=== PATIENT | male | born 1965 | race Caucasian/White ===

== ENCOUNTER 2016-11-22 12:33 | Inpatient (IN) | payer MEDICARE, OTHER ==
[2016-11-22] VITALS (9 sets, daily range): BP systolic 95–145; BP diastolic 39–76; BMI 27.9
[~2016-11-22] VITALS: Ht 180.3 cm; Wt 90.7 kg
--- NOTE | ~2016-11-22 | HEMODYNAMI ---
PATIENT:INDY MORGAN MEDICAL RECORD: [id number] : 67 [address] [id number] ADMISSION DATE: 11/22/16 Generatedon:11/25/201614:55 Patient name: INDY MORGAN Patient #: [id number] SSN: : 1965 Date of study: 11/25/2016 Page: Of Hemodynamic Procedure Report Patient Data Patient Demographics Procedure consent was obtained First Name: INDY Gender: Male Last Name: CATHY : 1965 Patient #: [id number] Age: 50 year(s) Race: Unknown Additional ID: [id number] Contact details Address: [address] [place] [address] [employer] State: [place] City: [place] Zip code: [address] Past Medical History Allergies Allergen Reaction Date Comments Reported Penicillins 11/23/2016 Pollen extracts 11/23/2016 Admission Admission Data Admission Date: 11/22/2016 Admission Time: 12:33 Room #: D.Formerly named [facility] Height (in.): 69 BSA: 2.06 (m2) Height (cm.): 175.26 BMI: 29.39 (kg/m2) Weight (lbs.): 199 Weight (kg.): 90.26 Procedure Procedure Types Cath Procedure Peripheral Cath Diagnostic Procedure Cath Peripheral Abd/Extremity Visceral/Mesenteric Mesenteric Arteriogram (Abd Artery) Procedure Description Procedure Date Procedure Date: 11/25/2016 Procedure Start Time: 14:38 Procedure Staff Name Function Shaheed Owusu MD Performing Physician Elias Payan RT Scrub Criselda Boswell RN Nurse Tawana Vega RT Pet Care Technician Tawana Vega RT Monitor Procedure Data Cath Procedure Fluoroscopy Diagnostic fluoroscopy Total fluoroscopy Time: 0.3 time: 0.3 min min Diagnostic fluoroscopy Total fluoroscopy dose: 10 dose: 10 mGy mGy Procedure Medications Medication Administration Route Dosage Fentanyl I.V. 50 mcg Fentanyl I.V. 50 mcg Fentanyl I.V. 50 mcg Fentanyl I.V. 50 mcg Fentanyl I.V. 50 mcg Hemodynamics Rest BSA: 2.06 (m2) O2 Consumption: Estimated: 274.92 (ml/min) O2 Consumption indexed : Estimated:133.46 (ml/min/m) Heart Rate: 107 (bpm) Snapshots Pre Cath Intra NCS Post Cath Vital Signs Time Heart Resp SPO2 NIBP (mmHg) Rhythm Pain Sedation Rate (ipm) (%) Status Level (bpm) 14:27:19 113 16 96 141/74(99) NSR 0 (11) 10(A) , No pain 14:31:41 115 15 94 138/78(93) NSR 0 (11) 10(A) , No pain 14:36:01 115 16 94 143/77(109) NSR 0 (11) 10(A) , No pain 14:40:19 115 16 94 143/78(112) NSR 0 (11) 10(A) , No pain 14:44:39 114 13 93 152/84(115) NSR 0 (11) 10(A) , No pain 14:49:04 114 15 94 156/83(118) NSR 0 (11) 10(A) , No pain 14:51:19 113 15 96 148/82(114) NSR 0 (11) 10(A) , No pain Medications Time Medication Route Dose Verified Delivered Reason Notes Effective ness by by 14:32:51 Fentanyl I.V. 50 Criselda Criselda right billie Boswell RN groin sheath discomfort 14:36:22 Fentanyl I.V. 50 Criselda Criselda right billie Boswell RN groin sheath discomfort 14:40:49 Fentanyl I.V. 50 Criselda Criselda right billie Boswell RN groin sheath discomfort 14:45:13 Fentanyl I.V. 50 Criselda Criselda right billie Boswell RN groin sheath discomfort 14:52:46 Fentanyl I.V. 50 Criselda Criselda right billie Boswell RN groin sheath discomfort Procedure Log Time Note 13:57:49 Patient Height : 69 cm 13:57:49 Patient Weight : 199 kg 14:25:02 Time tracking: Regular hours 14:25:44 Plan of Care:Hemodynamics will remain stable., Cardiac rhythm will remain stable., Comfort level will be maintained., Respiratory function will remain adequate., Patient/ family verbilizes understanding of procedure., Procedure tolerated without complication., Recovers from procedure without complications.. 14:25:52 Patient received from ICU to IR Alert and oriented. Tansferred to table in Supine position. 14:25:54 Correct patient and procedure confirmed by team. 14::56 Signed procedure consent form obtained from patient. 14::57 ECG and BP/O2 sat monitors applied to patient. 14::58 Vital chart was started 14:26:00 Baseline sample Acquired. 14:26:02 Full Disclosure recording started 14:26:03 - 14:26:08 H&P Date Dictated: 11/25/2016 Within 30 days and on chart.. 14:26:30 Use device set IR Diagnostic 14:26:31 Sterile Angiographic Pack opened to sterile field. 14:26:32 Bag Decanter opened to sterile field. 14:26:41 Terumo ANGLE 180L glide wire opened to sterile field. 14:32:51 Fentanyl 50 mcg I.V. was administered by Criselda Boswell RN; right groin sheath discomfort; 14:33:54 Physician arrived 14:33:57 --------ALL STOP TIME OUT------ 14:33:58 Final Timeout: patient, procedure, and site verified with staff and physician. All members of the team are in agreement. 14:34:14 Sedation plan: IV Moderate Sedation Fentanyl 14:34:22 Procedure started. 14:36:22 Fentanyl 50 mcg I.V. was administered by Criselda Boswell RN; right groin sheath discomfort; 14:38:13 Local anesthetic to right femoral artery with Lidocaine 1% by Shaheed Owusu MD.INITIAL ACCESS ONLY 14:38:41 glide wire advanced through the catheter and catheter removed. 14:40:49 Fentanyl 50 mcg I.V. was administered by Criselda Boswell RN; right groin sheath discomfort; 14:43:26 sheath pulled and brianna pressure held to obtain hemostasis 14:43:37 Procedure ended.(Physican Out) 14:45:13 Fentanyl 50 mcg I.V. was administered by Criselda Elbert RN; right groin sheath discomfort; 14:48:08 Fluoroscopy time 00.30 minutes. 14:48:13 Fluoroscopy dose: 10 mGy 14:48:13 Flurop Dose total: 10 14:48:20 Sharps counted by scrub and verified by RElisaNElisa 14:48:24 Procedure and supply charges have been captured, reviewed, submitted an d are correct. 14:52:46 Fentanyl 50 mcg I.V. was administered by Criselda Boswell RN; right groin sheath discomfort; 14:55:50 Vital chart was stopped Device Usage Item Name Manufacture Quantity Catalog Hospital Part Current Minimal Lot# / Number Charge Number Stock Stock Serial# Code Sterile Cardinal 1 [id number] 5 Angiographic Health Pack Bag Decanter Microtek 1 [id number] 5 [employer] Terumo ANGLE Terumo 1 [id number] 113923 [id number] 5 180L glide wire Signature Audit [place] Stage Time Signature Unsigned Intra-Procedure 11/25/2016 Tawana Vega 2:55:48 PM RT(R) Signatures Monitor : Tawana Vega RT Signature : Date : Time : [address] [address]
--- NOTE | ~2016-11-22 | HEMODYNAMI ---
PATIENT:INDY MORGAN MEDICAL RECORD: [id number] : 67 [facility] [address] [id number] ADMISSION DATE: 11/22/16 Generatedon:11/23/201616:53 Patient name: INDY MORGAN Patient #: [id number] SSN: : 1965 Date of study: 11/23/2016 Page: Of Hemodynamic Procedure Report Patient Data Patient Demographics Procedure consent was obtained First Name: INDY Gender: Male Last Name: CATHY : 1965 Patient #: [id number] Age: 50 year(s) Race: Unknown Additional ID: [id number] Contact details Address: [address] [place] [address] [employer] State: [place] City: [place] Zip code: [address] Past Medical History Allergies Allergen Reaction Date Comments Reported Penicillins 11/23/2016 Pollen extracts 11/23/2016 Admission Admission Data Admission Date: 11/22/2016 Admission Time: 12:33 Room #: .2232 Height (in.): 69 BSA: 2.06 (m2) Height (cm.): 175.26 BMI: 29.39 (kg/m2) Weight (lbs.): 199 Weight (kg.): 90.26 Procedure Procedure Types Cath Procedure Peripheral Cath Diagnostic Procedure Cath Peripheral Abd/Extremity Visceral/Mesenteric Mesenteric Arteriogram (Abd Artery) Procedure Description Procedure Date Procedure Date: 11/23/2016 Procedure Start Time: 16:06 Procedure Staff Name Function Mike Alfaro MD Performing Physician Elias Payan RT Scrub Criselda Boswell RN Nurse Lacie Gamble RN Nurse Tawana Vega RT Alteration Manager Tawana Vega RT Monitor Procedure Data Cath Procedure Diagnostic catheters Device Type Used For End Catheter Placement Merit Impress 5Fr SIM 1 Catheter Procedure Medications Medication Administration Route Dosage Fentanyl I.V. 50 mcg Benadryl I.V. 50 mg Fentanyl I.V. 50 mcg Vasopressin 0.2 units/min (100units/250 NS) 0.9% NaCl 30 ml/hr Hemodynamics Rest BSA: 2.06 (m2) O2 Consumption: Estimated: 274.73 (ml/min) O2 Consumption indexed : Estimated:133.36 (ml/min/m) Heart Rate: 106 (bpm) Snapshots Pre Cath Intra NCS Post Cath Vital Signs Time Heart Resp SPO2 NIBP (mmHg) Rhythm Pain Sedation Rate (ipm) (%) Status Level (bpm) 15:50:03 104 14 99 147/70(96) NSR 0 (11) 10(A) , No pain 15:54:20 105 12 98 132/68(94) NSR 0 (11) 10(A) , No pain 15:58:41 105 15 99 144/68(112) NSR 0 (11) 10(A) , No pain 16:03:04 106 19 100 148/77(100) NSR 0 (11) 10(A) , No pain 16:07:20 105 12 98 143/78(110) NSR 0 (11) 10(A) , No pain 16:11:44 107 12 99 133/69(99) NSR 0 (11) 10(A) , No pain 16:17:01 108 15 98 146/69(109) NSR 0 (11) 10(A) , No pain 16:22:21 109 14 99 139/64(89) NSR 0 (11) 10(A) , No pain 16:27:47 110 12 100 126/69(98) NSR 0 (11) 10(A) , No pain 16:32:03 111 12 100 125/78(110) NSR 0 (11) 10(A) , No pain 16:36:17 110 13 99 145/78(107) NSR 0 (11) 10(A) , No pain 16:41:38 109 15 98 134/75(108) NSR 0 (11) 10(A) , No pain 16:45:56 110 11 99 146/81(100) NSR 0 (11) 10(A) , No pain 16:50:19 108 22 98 162/86(123) NSR 0 (11) 10(A) , No pain Medications Time Medication Route Dose Verified Delivered Reason Notes Ef fectiveness by by 15:50:36 Fentanyl I.V. 50 mcg Lacie Lacie for Tye Tye sedation RN RN 16:06:46 Jimboadryl I.V. 50 mg Lacie Lacie for Tye Tye sedation RN RN 16:16:06 Fentanyl I.V. 50 mcg Lacie Lacie for Tye Tye sedation RN RN 16:30:52 Vasopressin I.A. via 0.2 Lacie Mike used for (100units/250 right units/min Tye Dominic procedure NS) groin RN catheter 16:51:01 0.9% NaCl IA via 30ml/hr Criselda Criselda used for right Elbert RN Elbert field seismologist groin sheath Procedure Log Time Note 15:22:42 Patient Weight : 199 kg 15:22:45 Patient Height : 69 cm 15:30:39 Use device set IR Diagnostic 15:41:23 Time tracking: Regular hours 15:41:55 Plan of Care:Hemodynamics will remain stable., Cardiac rhythm will remain stable., Comfort level will be maintained., Respiratory function will remain adequate., Patient/ family verbilizes understanding of procedure., Procedure tolerated without complication., Recovers from procedure without complications.. 15:41:58 Patient arrives emergently. 15:42:08 Patient received from ICU to IR Alert and oriented. Tansferred to table in Supine position. 15:42:17 Correct patient and procedure confirmed by team. 15:42:19 Signed procedure consent form obtained from patient. 15:42:25 - 15:42:35 H&P Date Dictated: 11/23/2016 Within 30 days and on chart.. 15:42:48 Pre-procedure instructions explained to patient. 15:42:49 Pre-op teaching completed and patient verbalized understanding. 15:42:51 Family in waiting room. 15:42:55 Patient NPO since Midnight. 15:43:15 Patient allergic to Penicillins 15:43:45 Patient allergic to Pollen extracts 15:43:56 Is the patient allergic to Iodine/contrast media? No. 15:44:01 Was the patient premedicated? No 15:44:24 Patient diabetic? Yes. 15:47:22 If diabetic: On Metformin? Yes 15:47:33 - 15:47:35 ----Pre-sedation anethsthesia assessment.---- 15:47:47 Previous problem with sedation/anesthesia? No ? 15:47:50 Snore? No 15:47:52 Sleep apnea? Yes 15:47:55 Deviated septum? No 15:47:57 Opens mouth fully? Yes 15:47:59 Sticks out tongue? Yes 15:48:05 Airway obstruction? No ? 15:48:13 Dentures? No ? 15:48:16 - 15:48:29 Cook BENTSON 145cm guide wire opened to sterile field. 15:48:30 St Dylan 5FR Sheath opened to sterile field. 15:48:32 Micropuncture VSI 4FR kit opened to sterile field. 15:48:34 A [facility] Impress 5Fr SIM 1 Catheter was advanced over the wire and used for . 15:48:36 TUBING, CONTRAST INJCTN HI PRES opened to sterile field. 15:48:37 Sterile Angiographic Pack opened to sterile field. 15:48:38 Bag Decanter opened to sterile field. 15:48:39 Acist Manifold opened to sterile field. 15:48:40 Acist Hand Control opened to sterile field. 15:48:40 Acist Syringe opened to sterile field. 15:48:45 - 15:48:50 ECG and BP/O2 sat monitors applied to patient. :48:52 Vital chart was started 15:48:54 Baseline sample Acquired. :48:55 Full Disclosure recording started 15:48:56 - 15:49:29 IV patent on arrival in right hand with 0.9% NaCl at KVO. 15:49:35 IV patent on arrival in left hand with 0.9% NaCl at KVO. 15:49:43 Right groin area was prepped with chlora-prep and draped in sterile fashion 15:49:46 Alarms reviewed by Eli Goldberg 15:49:47 Sharps counted by scrub and verified by RElisaNElisa 15:49:48 - 15:50:36 Fentanyl 50 mcg I.V. was administered by Lacie Gamble RN; for sedation; 15:51:49 Pre procedure: right dorsailis pedis pulse Doppler 15:55 Pre procedure: left dorsailis pedis pulse Doppler 15:52:04 Pre procedure: right posterior tibial pulse Doppler 15:52:09 Pre procedure: left posterior tibial pulse Doppler 15:52:15 - 16:04:06 Physician arrived 16:04:07 --------ALL STOP TIME OUT------ 16:04:08 Final Timeout: patient, procedure, and site verified with staff and physician. All members of the team are in agreement. 16:04:24 Physical assessment completed. ASA score P 3 - A patient with severe systemic disease as per Mike Alfaro MD. 16:04:30 Sedation plan: IV Moderate Sedation Versed, Fentanyl 16:06:38 Procedure started. 16:06:41 Local anesthetic to right femoral artery with Lidocaine 1% by Mike Alfaro MD.INITIAL ACCESS ONLY 16:06:44 Arterial access obtained using ultrasound guidance. 16:06:46 Benadryl 50 mg I.V. was administered by Lacie Gamble RN; for sedation; 16:13:16 Angiography was performed. 16:16:06 Fentanyl 50 mcg I.V. was administered by Lacie Gamble RN; for sedation; 16:17:53 Angiography was performed. 16:29:39 catheter left in the sma for infusion of vasopressin 16:29:52 Procedure ended.(Physican Out) 16:30:52 Vasopressin (100units/250 NS) 0.2 units/min I.A. via right groin catheter was administered by Mike Alfaro MD; used for procedure; 16:33:08 Procedure and supply charges have been captured, reviewed, submitted an d are correct. 16:41:04 Unit # [id number] PRBCs up at this time and infusing without difficulty. vss. No sign of reaction to previous completed unit. 16:51:01 0.9% NaCl 30ml/hr IA via right groin sheath was administered by Criselda Boswell RN; used for procedure; 16:53:38 Vital chart was stopped Device Usage Item Name Manufacture Quantity Catalog Hospital Part Current Minima l Lot# / Number Charge Number Stock Stock Serial# Code [facility] 1 [id number] [address] St Dylan 1 [id number] [id number] 5 Sheath Micropuncture VSI VASCULAR 1 [id number] 296387 5 VSI 4FR kit SOLUTIONS Merit Impress Merit 1 [id number] 714806 789910 429943 5 5Fr SIM 1 Medical Catheter TUBING, Merit 1 [id number] 856475 [id number] 5 CONTRAST Medical INJCTN HI PRES Sterile Cardinal 1 [id number] 907273 526150 5 Angiographic Health Pack Bag Decanter Microtek 1 2002S 209252 34433 241021 5 Medical Inc. Acist Acist 1 06444 310417 755385 371360 5 Manifold Medical Systems Inc Acist Hand Acist 1 30186 820984 025349 339862 5 Control Medical Systems Inc Acist Syringe Acist 1 84684 905928 326396 646219 20 Medical Systems Inc Signature Audit [place] Stage Time Signature Unsigned Intra-Procedure 11/23/2016 Tawana Vega 4:53:35 PM RT(R) Signatures Monitor : Tawana Vega RT Signature : Date : Time : [id number] [place] [address]
--- NOTE | 2016-11-22 12:50 | NUR ---
RECEIVED PT WITH AT BEDSIDE AT THIS TIME PT HAS TRACH PRESENT THAT IS PATENT AND INTACT. RESP EVEN AND NONLABORED V/S WNL PT DENIES NEEDS AT THIS TIME. SRX2 BED AT LOWEST SETTING CALL LIGHT WITHIN REACH 20G IV STARTED IN RIGHT FOREARM PATENT AND INTACT. WILL CONTINUE TO MONITOR
[2016-11-22] MEDS ORDERED: LEVEMIR FLEX TOUCH P SQ (13:22)
[2016-11-22] MEDS ORDERED: EPIPEN0.3 MG/0.3 IM (13:57)
[2016-11-22 14:16] LABS: HEMATOCRIT 22.4 % (42.0-54.0)
[2016-11-22 14:28] LABS: HEMOGLOBIN 7.5 g/dL (13.5-17.5)
[2016-11-22] MEDS ORDERED: AZELASTINE137 MCG/0. NASAL ×2 (16:53→17:02)
[2016-11-22] MEDS ORDERED: JARDIANCE25 MG PO (16:54)
[2016-11-22] MEDS ORDERED: JANUMET XR 1001 EACH PO (16:54)
[2016-11-22] MEDS ORDERED: FUROSEMIDE40 MG PO (16:55)
[2016-11-22] MEDS ORDERED: OMEPRAZOLE20 M1 PO (16:56)
[2016-11-22] MEDS ORDERED: LIPITOR10 MG PO (16:56)
[2016-11-22] MEDS ORDERED: LISINOPRIL10 MG PO (16:57)
[2016-11-22] MEDS ORDERED: KENALOG 0.1 % 115 GM TOPICAL (16:57)
[2016-11-22] MEDS ORDERED: IPRATROPIUM BR42 MCG NASAL (16:58)
[2016-11-22] MEDS ORDERED: NOVOLOG100 U/M1 SC (17:03)
[2016-11-22] MEDS ORDERED: DIFLUCAN100 MG PO (17:03)
--- NOTE | 2016-11-22 20:00 | NUR ---
GONE TO IR VIA WHEELCHAIR, ACCOMPAINIE BY , NO DISTRESS NOTED
--- NOTE | 2016-11-22 20:00 | NUR ---
BLOOD DRAWN FOR IR, STOOL COLLECTED, TAKEN TO LAB
--- NOTE | 2016-11-22 21:02 | NUR ---
ASSESSMENT COMPLETED, NO ACUTE DISTRESS NOTED, IN ROOM, CL IN REACH
--- NOTE | 2016-11-22 22:00 | NUR ---
20 G IV SITED IN L FOREARM, PROTONIX HUNG PER ORDERS, JARRET WELL, CL IN REACH
--- NOTE | 2016-11-22 22:25 | NUR ---
RETURNED FROM IR, MEDS GIVEN PER ORDERS, WILL START PRBC, IV PROTONIX HELD UNTIL AFTER TRANSFUSION COMPLETE
--- NOTE | 2016-11-22 23:08 | NUR ---
BLOOD STARTED TRANSFUSING, NO RX NOTED, IN ROOM CL IN REACH
[2016-11-23] VITALS (19 sets, daily range): BP systolic 99–159; BP diastolic 34–85; Ht 180.3 cm; Wt 90.7 kg
[2016-11-23 05:41] LABS: BASOPHILS 0.2 % (0.0-2.0); EOSINOPHILS 0.2 % (0-7); HEMATOCRIT 23.5 % (42.0-54.0); IMMATURE GRANULOCYTES 0.6 % (0-5); LYMPHOCYTES 9.3 % (15-50); MCH 31.6 pg (26.0-34.0); MCV 92.9 fL (80.0-100.0); MEAN PLATELET VOLUME 9.9 fL (7.4-10.4); MONOCYTES 19.3 % (2-11); NEUTROPHILS 70.4 % (40-80); PLATELET COUNT 154 10x3/uL (130-400); RBC 2.53 10x6/uL (4.20-6.10); RDW 15.7 % (11.5-14.5); WBC 10.3 10x3/uL (4.8-10.8)
[2016-11-23 06:03] LABS: INR 1.09 (0.85-1.17)
[2016-11-23 06:04] LABS: APTT 31.2 SECONDS (22.8-39.4)
[2016-11-23 06:06] LABS: ALBUMIN 2.5 g/dL (3.4-5.0); ALKALINE PHOSPHATASE 44 U/L (46-116); ALT (SGPT) 21 U/L (10-68); AMYLASE - SERUM 24 U/L (25-115); BILIRUBIN - TOTAL 1.08 mg/dL (0.2-1.3); CALC OSMOLALITY 292 mosm/kg (275-300); CALCIUM 9.5 mg/dL (8.5-10.1); CARBON DIOXIDE 26.9 mmol/L (21.0-32.0); CHLORIDE - SERUM 100 mmol/L (98-107); CREATININE - SERUM 1.1 mg/dL (0.6-1.3); GLUCOSE 168 mg/dL (74-106); LIPASE 296 U/L (73-393); POTASSIUM - SERUM 4.6 mmol/L (3.5-5.1); PROTEIN - SERUM 5.6 g/dL (6.4-8.2); SODIUM 138 mmol/L (136-145); UREA NITROGEN 48 mg/dL (7-18); eGFR NON AFRICAN AMERICAN 75 mL/min (90-120)
--- NOTE | 2016-11-23 08:00 | NUR ---
PT ASSESSMENT COMPLETE AWAKE AND ALERT ORIENTECD X3 WITH NOTED CONFUSION AT TIMES HAS TRACH COLLAR TO HUMIDIFIED AIR. PASSIMUR VALVE IN PLACE. PIV PATENT TO NS @100 WELL PIV TO LEFT FA PATENT TO PROTONIX GTT AT 10 ML/HR. NPO FOR SCHEDULED EGD TODAY CONSENTS TO CHART
--- NOTE | 2016-11-23 11:00 | NUR ---
PT RETURNED TO ROOM FROM EGD NO ACUTE DISTRESS NOTED PLACED ON TRACH COLLAR NEW ORDER FOR SPUTUM CULTURE OBTAINED INDUCED PER RT.
--- NOTE | 2016-11-23 11:29 | NUR ---
PATIENT SITTING UP IN BED WITH IV INTACT. NO COMPLAINTS. FAMILY AT BEDSIDE. CALL LIGHT WITHIN REACH.
--- NOTE | 2016-11-23 14:00 | NUR ---
PT NOTED TO HAVE BLOODY STOOL CALL PLACED TO DR SKELTON TO INFORM OF NEW INFORMATION REMAINS AT BEDSIDE. NEW ORDERS FOR TRANSFER TO ICU
[2016-11-23 14:04] LABS: HEMATOCRIT 22.6 % (42.0-54.0); HEMOGLOBIN 7.9 g/dL (13.5-17.5)
--- NOTE | 2016-11-23 14:13 | NUR ---
Patient Name: INDY MORGAN Admission Status: Urgent Accout number: [id number] Admission Date: 11-22-2016 : 1965 Admission Diagnosis: Attending: MARIA DE JESUS Current LOS: 1 Anticipated DC Date: 11-26-2016 Planned Disposition: Home or Self Care Primary Insurance: MEDICARE A & B Discharge Planning Comments: CM MET WITH PATIENT AND (GILDA) REGARDING D/C NEEDS AND PLANS. PATIENTS STATED THEY HAVE 3 STEPS WITH RAILS TO ENTER HOME AND 2 FLIGHTS W/RAILS IN HOME (PATIENT DOES NOT USE). PATIENTS WILL DRIVE HIM HOME AT DISCHARGE. PATIENT IS INDEPENDENT WITH HIS CARE AND HAS A WALKER AT HOME IF NEEDED. PATIENTS PCP IS DR. MALAGON AND [facility] [address] IS HIS PHARM[facility]Y. PATIENT HAS NEVER HAD HOME HEALTH AND DOES NOT THINK HE WILL NEED IT AT DISCHARGE. CM WILL CONTINUE TO FOLLOW PATIENT WITH D/C NEEDS AND PLANS. PCP DR. MANAS ALFONSO [address] [phone] GILDA () [phone] In House Cra: Opal Barth Is the patient Alert and Oriented? Yes 0 * How many steps to enter\exit or inside your home? 3 W/RAILS 0 * PCP DR. MALAGON 0 * Pharmacy [facility] [address] 0 * Preadmission Environment Home with Family 0 * ADLs Independent 0 * Equipment Walker 0 * List name and contact numbers for known caregivers / representatives who currently or will assist patient after discharge: GILDA () [phone] 0 * Community resources currently utilized None 0 * Additional services required to return to the preadmission environment? Yes 0 * Can the patient safely return to the preadmission environment? Yes 0 * Has this patient been hospitalized within the prior 30 days at any hospital? No 0 Grand Total: 0
--- NOTE | 2016-11-23 14:40 | NUR ---
PRBCS STARTED AT THIS TIME VITAL SIGNS WITHIN NORMAL LIMITS. PT TO GO TO IR FOR ANGIOGRAM OF MESSENTARY ARTERIES.
--- NOTE | 2016-11-23 15:00 | NUR ---
REPORT CALLED TO OVIDIO IN ICU PT TO BE TRANSFERED TO ICU AFTER IR PROCEEDURE.
--- NOTE | 2016-11-23 15:15 | NUR ---
PT TO IR AT THIS TIME
--- NOTE | 2016-11-23 17:53 | NUR ---
1710 PT RECIEVED IN THE ICU VIA BED FROM IR.. RIGHT GROIN SHEATH IN PLACE WITH NS INFUSING AT 30CC/HR AND VASOPRESSIN INFUSING AT 30CC/HR INTO THE RIGHT GROIN CATHETER ITSELF.. THERE IS BILATERAL PIV WITH PRBC INFUSING INTO THE LEFT FOREARM AT 175CCC/HR AND INTO THE RIGHT FOREARM IS A PROTONIX DRIP INFUSING AT 30CC/HR PT IS AT THE BEDSIDE .. IS AN IR RN AND IS VERY COMFORTABLE ASSISTING PT ON AND OFF BEDPAN.. PT IS HAVING ALMOST CONTINUAL BLOODY GELATIOUS STOOLS .. IR NURSE CHRIS ALEGRE IN ROOM AND HAS CALLED DR CERVANTES AND INFOMED HIM OF THE STOOLS NO NEW ORDERS RECIEVED AT THIS TIME RE VASOPRESSIN OR PRBC INFUSION.. PT IS VOIDING CLEAR PALE YERLLOW URINE INTO URINAL .. THERE IS A TRACH IN PLACE WITH A PASIMIER VALVE AND PT IS ABLE TO SPEAK WITHOUT DIFFICCULTY.. ROOM AIR O2 WITH SATS AT 97%.. PT IS WITHOUT SKIN BREAKDOWN ON BUTTOCKS BUT DOES HAVE RED SCALY SKIN ON LOWER LEGS WITH ORANGE PEEL LIKE SKIN.. THE PULSES IN LOWER EXTREMITIES ARE PALPABLE ..
--- NOTE | 2016-11-23 18:33 | OP ---
PATIENT NAME: INDY MORGAN MEDICAL RECORD: [id number] :[birth year] LOCATION:[facility] D.2311 ADMISSION DATE:11/22/16 SURGEON: SEBASTIAN KSELTON MD DATE OF OPERATION: 11/23/2016 PROCEDURE: EGD with biopsy. ATTENDING PHYSICIAN: Shaheed Malagon MD INDICATIONS: Mr. Morgan is a pleasant 50-year-old gentleman with a history of tracheostomy, DVT, and diabetic-related gastroparesis, who presented to clinic with symptoms of melenic stools. He has no associated nausea, vomiting or hematemesis, but he had been having some left upper quadrant pain. He takes Ecotrin daily, but no nonsteroidal anti-inflammatory drugs. His admission hemoglobin was 7.5. He received 2 units of packed red blood cells overnight and this morning his hemoglobin is 8. He has been on a Protonix drip. He presents for inpatient EGD. PREMEDICATIONS: Total IV anesthesia (ASA 4), propofol 300 mg. INSTRUMENT: Olympus video gastroscope. PROCEDURE AND FINDINGS: After receiving informed consent, Mr. Morgan's posterior pharynx was anesthetized with Cetacaine spray, placed in left lateral decubitus position and sedated as per anesthesia. After achieving an adequate level of sedation, gastroscope was introduced per orally and advanced to the duodenum without difficulty. The proximal esophageal mucosa was remarkable for white plaques consistent with mild to moderate candidiasis. A small hiatal hernia was present. There were prominent gastric folds in the cardia, fundus and body of the stomach. No signs of bleeding, but possibly representing early varices. A small erosion was noted along the incisura. There was mild erythema in the antrum and antral biopsies were obtained to rule Helicobacter pylori. Pylorus was patent and competent. Duodenal mucosa was without erythema or ulcers, appeared normal through the second portion. Bile was seen in the duodenum, but no blood and likewise, there was no blood seen in the stomach or esophagus. Gastroscope was withdrawn. Mr. Morgan tolerated the procedure well, no immediate complications. ASSESSMENT: 1. Mild proximal esophageal candidiasis. 2. Small hiatal hernia. 3. Prominent gastric folds in the cardia, fundus and body of the stomach, possibly representing early varices. 4. Small erosion along the incisura of the stomach. 5. Mild gastritis. 6. Gastrointestinal bleed, no signs of upper gastrointestinal bleeding at this time. 7. Negative nuclear medicine gastrointestinal blood loss scan. RECOMMENDATIONS: 1. We will transfuse an additional unit of packed red blood cells. 2. Full liquid diet. 3. Change Protonix to 40 mg IV b.i.d. 4. Nystatin swish and swallow. 5. CT scan of the abdomen and pelvis to evaluate Mr. Morgan's abdominal OPERATIVE REPORT [id number] INDY MORGAN anatomy. TRANSINT:[id number] Voice Confirmation ID: [id number] DOCUMENT ID: [id number] SEBASTIAN SKELTON MD at 1833 CC: SHAHEED MALAGON MD [id number] DICTATION DATE: 11/23/16 1032 BRICK SETTER: 11/23/16 1213 ADM IN [facility] [address] [place] [address]
[2016-11-23 19:13] LABS: HEMATOCRIT 23.8 % (42.0-54.0); HEMOGLOBIN 8.3 g/dL (13.5-17.5)
--- NOTE | 2016-11-23 19:33 | NUR ---
1800 CONTINUES AT THE BEDSIDE..PRBC COPNTINUES..
[2016-11-23 20:45] LABS: HEMATOCRIT 24.6 % (42.0-54.0); HEMOGLOBIN 8.4 g/dL (13.5-17.5)
[2016-11-24] VITALS (25 sets, daily range): BP systolic 102–169; BP diastolic 71–177
[2016-11-24 04:37] LABS: BASOPHILS 0.4 % (0.0-2.0); EOSINOPHILS 0.2 % (0-7); HEMATOCRIT 26.6 % (42.0-54.0); HEMOGLOBIN 9.2 g/dL (13.5-17.5); IMMATURE GRANULOCYTES 0.9 % (0-5); LYMPHOCYTES 8.8 % (15-50); MCH 31.6 pg (26.0-34.0); MCHC 34.6 g/dL (31.0-37.0); MCV 91.4 fL (80.0-100.0); MEAN PLATELET VOLUME 9.3 fL (7.4-10.4); MONOCYTES 21.5 % (2-11); NEUTROPHILS 68.2 % (40-80); PLATELET COUNT 141 10x3/uL (130-400); RBC 2.91 10x6/uL (4.20-6.10); RDW 17.6 % (11.5-14.5); WBC 10.8 10x3/uL (4.8-10.8)
--- NOTE | 2016-11-24 05:08 | NUR ---
SPOKE WITH ABOUT CHANGE IN PT CONDITION. PT BECOMING INCREASINGLY CONFUSED AND REFUSING TO REMAIN SAFE.
[2016-11-24 05:13] LABS: ALBUMIN 2.4 g/dL (3.4-5.0); ALKALINE PHOSPHATASE 39 U/L (46-116); ALT (SGPT) 24 U/L (10-68); BILIRUBIN - TOTAL 1.09 mg/dL (0.2-1.3); CALCIUM 8.7 mg/dL (8.5-10.1); CARBON DIOXIDE 25.9 mmol/L (21.0-32.0); CHLORIDE - SERUM 109 mmol/L (98-107); GLUCOSE 182 mg/dL (74-106); PROTEIN - SERUM 5.9 g/dL (6.4-8.2); SODIUM 147 mmol/L (136-145)
[2016-11-24 05:15] LABS: CALC OSMOLALITY 302 mosm/kg (275-300); CREATININE - SERUM 0.7 mg/dL (0.6-1.3); POTASSIUM - SERUM 3.3 mmol/L (3.5-5.1); UREA NITROGEN 30 mg/dL (7-18); eGFR NON AFRICAN AMERICAN > 90 mL/min (90-120)
--- NOTE | 2016-11-24 07:00 | NUR ---
SHIFT ASSESSMENT COMPLETE. SEE FLOWSHEETS FOR DETAILS. PT AWAKE AND CONVERSANT. AT BEDSIDE. PT HAS TRACH COLLAR WITH VOICE BUTTON IN PLACE. NO OXYGEN IN USE AT THIS TIME. O2 SATS 95% ON ROOM AIR. PT CONFUSED, SHOWING SIGNS OF ETOH WITHDRAWAL ACCORDING TO DOES DRINK HEAVILY. 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 IS PLEASANT.
--- NOTE | 2016-11-24 09:15 | NUR ---
REPORT GIVEN TO OMER GALEANO. PT NEEDS 1 PRBC AND MORNING INSULIN DOSES. NEEDS MEDICATION FOR DT.
[2016-11-24 12:49] LABS: HEMATOCRIT 28.8 % (42.0-54.0); HEMOGLOBIN 9.9 g/dL (13.5-17.5)
--- NOTE | 2016-11-24 16:00 | NUR ---
DR LAZCANO HERE VASOPRESSIN DECREASED TO 0.1 UNITS WHICH IS 15CC HR. PER HIS VERBAL ORDER.
--- NOTE | 2016-11-24 19:40 | NUR ---
Assessment complete. See flowsheet. pt awake and lying supine with right groin sheath noted with Vasopressin infusing @ 0.01un/min. Left forearm PIV site CDI with NS infusing @ 100cc/hr. Pt alert, oriented x4 and following all conversation and commands. Trach site secure. Pt receiving O2 RA. Lung sounds present crackles to all gonzalez. Yanker provided and pt encouraged to deep breathe and cough with thick, yellow sputum produced. HR SR with S1S2 auscultated. Radial pulses +2 bilaterally. Dorsalis pedis pulses doppler located bilaterally. Pt teaching on lying flat performed. Pt verbalizes understanding. Mckeon catheter secure retrieving clear/yellow urine. Pt pulled up in bed. NO c/o pain at this time. Call light and bedside table within pt reach. CPOC.
[2016-11-24 20:16] LABS: HEMATOCRIT 30.4 % (42.0-54.0); HEMOGLOBIN 10.2 g/dL (13.5-17.5)
[2016-11-24 20:21] LABS: INR 1.17 (0.85-1.17); PROTIME 14.8 SECONDS (11.6-15.0)
--- NOTE | 2016-11-24 20:30 | NUR ---
Pt here to perform patient trach care and visitation. Rapport established
--- NOTE | 2016-11-24 21:40 | NUR ---
Pt PM meds administered. See MAR. Pt provided with fresh diet soda. BS check 200mg/dL and covered per s/s. CPOC.
--- NOTE | 2016-11-24 23:40 | NUR ---
Reassessment complete. See flowsheet. Pain denied at this time. NO neuro changes to note. O2 RA. Respirations unlabored. Lung sounds present crackles to upper lobes with deep inspiration and pt encouraged to continue deep breathing and coughing. HR SR. BS +. Pt self-positioned for comfort with leg straight. Right groin sheath site CDI with Vasopressin infusing. PIV site CDI; unchanged. Diet soda and ice chips provided. No other changes to note. Call light within reach. CPOC.
[2016-11-25] VITALS (37 sets, daily range): BP systolic 113–176; BP diastolic 64–123
--- NOTE | 2016-11-25 01:40 | NUR ---
Pt resting with VSS and allowed to continue resting undisturbed. NO s/s pain or distress. Call light and bedside table remain within pt reach. CPOC.
--- NOTE | 2016-11-25 03:40 | NUR ---
Reassessment complete. See flowsheet. Pain denied at this time. NO neuro changes to note. O2 RA. Respirations unlabored. Lung sounds present crackles to upper lobes with deep inspiration and pt encouraged to continue deep breathing and coughing. HR SR. BS +. Pt self-positioned for comfort with leg straight. Right groin sheath site CDI with Vasopressin infusing. PIV site CDI; unchanged. No other changes to note. Clear diet soda provided per pt request. Call light and bedside table remain within pt reach. CPOC.
--- NOTE | 2016-11-25 05:40 | NUR ---
Pt awake for AM blood draw and denies further needs. Call light and bedside table within reach. VSS. CPOC.
[2016-11-25 05:56] LABS: BASOPHILS 0.1 % (0.0-2.0); EOSINOPHILS 0.4 % (0-7); HEMATOCRIT 29.2 % (42.0-54.0); HEMOGLOBIN 9.7 g/dL (13.5-17.5); IMMATURE GRANULOCYTES 0.6 % (0-5); LYMPHOCYTES 6.6 % (15-50); MCH 31.4 pg (26.0-34.0); MCHC 33.2 g/dL (31.0-37.0); MEAN PLATELET VOLUME 9.1 fL (7.4-10.4); MONOCYTES 18.6 % (2-11); NEUTROPHILS 73.7 % (40-80); PLATELET COUNT 143 10x3/uL (130-400); RBC 3.09 10x6/uL (4.20-6.10); RDW 17.9 % (11.5-14.5); WBC 10.4 10x3/uL (4.8-10.8)
[2016-11-25 06:10] LABS: MCV 94.5 fL (80.0-100.0)
[2016-11-25 06:24] LABS: ALBUMIN 2.5 g/dL (3.4-5.0); ALKALINE PHOSPHATASE 38 U/L (46-116); ALT (SGPT) 28 U/L (10-68); CALCIUM 8.2 mg/dL (8.5-10.1); CARBON DIOXIDE 25.3 mmol/L (21.0-32.0); CHLORIDE - SERUM 110 mmol/L (98-107); CREATININE - SERUM 0.7 mg/dL (0.6-1.3); GLUCOSE 143 mg/dL (74-106); PROTEIN - SERUM 6.1 g/dL (6.4-8.2); SODIUM 149 mmol/L (136-145); eGFR NON AFRICAN AMERICAN > 90 mL/min (90-120)
[2016-11-25 06:25] LABS: CALC OSMOLALITY 299 mosm/kg (275-300); POTASSIUM - SERUM 2.6 mmol/L (3.5-5.1); UREA NITROGEN 19 mg/dL (7-18)
--- NOTE | 2016-11-25 07:00 | NUR ---
REC'D REPORT FROM OUTGOING RN - PT RESTING WITH EYES CLOSED - RESP REG RATE RHYTHM.
--- NOTE | 2016-11-25 08:30 | NUR ---
DR. ROOT AT [facility] - INSTRUCTED TO 1/2 VASSOPRESSIN FOR 12 HOURS, THE D/C. HOWEVER - F/U WITH IR FOR CONT PLAN OF CARE TO REMOVE LEFT FEMORAL SEATH
--- NOTE | 2016-11-25 09:00 | NUR ---
SPOUSE AT BEDSIDE - REVEIWED HOME MEDICATIONS WITH DR. CRANDALL - (DOMPERIDONE) INSTRUCTED TO GIVE HOME MED, & TO CONTACT [facility] FOR ADMISTRATION LABEL- CALLED PHARM - INSTRUCTED TO GIVE TO TERRAZZO HELPER TO PLACE LABEL - SEE MARC Enamorado
--- NOTE | 2016-11-25 11:00 | NUR ---
ASSESSMENT COMPLETE - CPOC
--- NOTE | 2016-11-25 14:00 | NUR ---
PT TRASNFERRED VIA BED BY IR RNs TO IR TO REMOVE SHEATH -
--- NOTE | 2016-11-25 15:00 | NUR ---
PT RTN TO UNIT - INFORMED SHEATH WAS UNUSABLE - PT WAS INSTRUCED TO KEEP LEFT LEG STRAIGHT FOR NEXT 6 HOURS. PT MAY BEND LEG AT 2100 - PT VERBALIZED UNDERSTANDING SPOUSE AT BEDSIDE
--- NOTE | 2016-11-25 15:00 | NUR ---
ASSESSMENT COMPLETE - NO OTHER ACUTE CHAGNES
--- NOTE | 2016-11-25 16:30 | NUR ---
PT ASKED FOR DILAUDID FOR BACK PAIN - MEDICATIONS GIVEN PO PRIOR TO DINNER - SNT ASSITED PT WITH EATING - CPOC
--- NOTE | 2016-11-25 18:33 | NUR ---
CRITICAL LAB - K+ AT 2.9 - PT ON POTASSIUM PROTOCOL - GIVEN 1 OF 4 20MEQ PO LIQUID POTASSIUM - PAGED DR. MATTA TO INFORM - PT ON LAXIX IV PUSH AT 1800, WILL REVIEW WITH - CPOC
--- NOTE | 2016-11-25 19:30 | NUR ---
Assessment complete. See flowsheet. Pt awake and drinking diet soda. Pt alert, oriented x4 and following all conversation and commands with no neuro deficits noted. Pupils size 3 bilaterally ERRLA. Pt respirations shallow and unlabored. Pt receiving O2 RA. Trach site CDI with passimur valve secure. Pt moving all extremities with 4/5 strength and +2 pitting edema noted to lower extremities bilaterally. Pt denies pain. Right groin puncture site CDI with no s/s infection or bleeding noted. Ice pack to right groin. Pt HR SR with S1S2 auscultated. Radial pulses +2 bilaterally with dorsalis pedis pulses doppler located bilaterally. Pt left forearm PIV site CDI with NS infusing @ 10cc/hr KVO rate with IV ABx. Abdomen soft, non-tender, tympanic to percussion and distended. Pt confirms passing flatulence intermittently. BS present to all quadrants. Mckeon catheter secure retrieving concentrated, garfield urine. Pt helped up in bed. Right groin + leg remain straight until ordered 2100hrs. HOB elevated slightly approx 5 degrees. Pt provided with fresh diet soda per request. No further request at this time. Call light and bedside table within pt reach. CPOC.
--- NOTE | 2016-11-25 23:30 | NUR ---
Reassessment complete. See flowsheet. Pt awake and watching television. HOB elevated to 30 degrees. Right groin site CDI. Pedal pulses doppler located. No neuro changes to note. O2 RA. Lung sounds present RUL, RML expiratory wheezing. BS +. Mckeon secure retrieving clear/yellow urine. Pt denies pain at this time. No other changes to note. Call light and bedside table remain within reach. CPOC.
[2016-11-26] VITALS (12 sets, daily range): BP systolic 113–137; BP diastolic 64–81
--- NOTE | 2016-11-26 01:10 | NUR ---
Pt to bedside toilet for soft, brown-green BM approx 400cc. Bath with gown and linen changes completed. Pt back to bed to position for comfort. Right groin site unchanged. CPOC.
--- NOTE | 2016-11-26 02:01 | NUR ---
Pt up to bedside toilet for BM approx 250cc liquid brown -green stool.
--- NOTE | 2016-11-26 03:30 | NUR ---
Reassessment complete. See flowsheet. Pt helped up to bedside toilet. Mckeon catheter removed with 1600cc urine output. No neuro changes to note. O2 RA. Lung sounds currently present crackles with productive coughing. HR SR. PIV site saline locked for ambulation. BS +. Pt gait steady. Pain denied.
--- NOTE | 2016-11-26 04:06 | NUR ---
Pt very agitated and requesting to leave ICU. allowed at bedside to calm patient. Diet soda provided per request. Librium 25mg tab administered. See MAR.
--- NOTE | 2016-11-26 04:16 | NUR ---
Pt back to bed and helped to position for comfort. IV restarted @ KVO
[2016-11-26 05:23] LABS: BASOPHILS 0.1 % (0.0-2.0); EOSINOPHILS 1.3 % (0-7); HEMATOCRIT 28.9 % (42.0-54.0); HEMOGLOBIN 9.5 g/dL (13.5-17.5); IMMATURE GRANULOCYTES 0.4 % (0-5); LYMPHOCYTES 4.3 % (15-50); MCH 31.5 pg (26.0-34.0); MCHC 32.9 g/dL (31.0-37.0); MCV 95.7 fL (80.0-100.0); MEAN PLATELET VOLUME 9.7 fL (7.4-10.4); MONOCYTES 16.1 % (2-11); NEUTROPHILS 77.8 % (40-80); PLATELET COUNT 156 10x3/uL (130-400); RBC 3.02 10x6/uL (4.20-6.10); RDW 18.4 % (11.5-14.5); WBC 10.8 10x3/uL (4.8-10.8)
--- NOTE | 2016-11-26 05:30 | NUR ---
Pt sitting quietly in bed and calm now. VSS. Pain denied.
[2016-11-26 05:47] LABS: ALBUMIN 2.3 g/dL (3.4-5.0); ALKALINE PHOSPHATASE 42 U/L (46-116); ALT (SGPT) 29 U/L (10-68); CALC OSMOLALITY 277 mosm/kg (275-300); CALCIUM 7.8 mg/dL (8.5-10.1); CARBON DIOXIDE 25.2 mmol/L (21.0-32.0); CHLORIDE - SERUM 103 mmol/L (98-107); CREATININE - SERUM 0.7 mg/dL (0.6-1.3); GLUCOSE 145 mg/dL (74-106); PROTEIN - SERUM 5.8 g/dL (6.4-8.2); SODIUM 137 mmol/L (136-145); UREA NITROGEN 16 mg/dL (7-18); eGFR NON AFRICAN AMERICAN > 90 mL/min (90-120)
[2016-11-26 05:49] LABS: POTASSIUM - SERUM 3.4 mmol/L (3.5-5.1)
--- NOTE | 2016-11-26 06:20 | NUR ---
Pt awake and agitated again. Alert, oriented x4 but refusing to wear ICU monitoring equipment and removed. Pt ambulating around room.
--- NOTE | 2016-11-26 07:00 | NUR ---
PT REPORT REC'D, PT CARE ASSUMED. PT AAOX4. PT DISCONNECTED SELF FROM TELEMETRY AND B/P CUFF STATES "I WAS TOLD YESTERDAY OR THE DAY BEFORE THAT ONCE IR WAS DONE WITH ME, DR. SKELTON TOLD ME TO SCHEDULE AN APPT WITH HER TO HAVE A COLONOSCOPY AND I COULD GO HOME." PT SITTING UP ON SIDE OF BED, LEFT FOREARM PIV S/L. NO C/O PAIN. SHIFT ASSESSMENT COMPLETED, SEE FLOW SHEET, ROOM FREE OF CLUTTER, CALL LIGHT IN REACH, WILL CONTINUE TO MONITOR PT.
--- NOTE | 2016-11-26 08:50 | NUR ---
DR. MATTA AT THE BEDSIDE
--- NOTE | 2016-11-26 09:00 | NUR ---
PT AT THE BEDSIDE, ALL QUESTIONS ANSWERED, VSS. WILL CONTINUE TO MONITOR PT.
--- NOTE | 2016-11-26 10:00 | NUR ---
LEFT FOREARM PIV INFILTRATED, RESITED TO LEFT AC, WILL CONTINUE TO MONITOR PT.
--- NOTE | 2016-11-26 11:00 | NUR ---
PT WALKING AROUND ROOM, NO C/O PAIN, VSS, REASSESSMENT COMPLETED, SEE FLOW FLOW SHEET. ROOM FREE OF CLUTTER, CALL LIGHT IN REACH. WILL CONTINUE TO MONITOR PT.
[2016-11-26 13:10] LABS: HEMATOCRIT 28.7 % (42.0-54.0); HEMOGLOBIN 9.5 g/dL (13.5-17.5)
--- NOTE | 2016-11-26 13:48 | NUR ---
RECEIVED PT FOR CARE. PT UP WALKING AROUND ROOM. AT BEDSIDE. DROPLET PRECAUTIONS IN PLACE. TRANSFER ORDERS TO MED/SURG. NOTIFIED SOLUTION PROFESSIONAL.
--- NOTE | 2016-11-26 15:47 | NUR ---
REPORT CALLED TO GWYN ON MED SURG.
--- NOTE | 2016-11-26 15:48 | NUR ---
PT REPORT REC'D FROM WALESKA WHITING. ROOM READY AND AWAITING PT ARRIVAL.
--- NOTE | 2016-11-26 19:30 | NUR ---
RECIEVED SHIFT REPORT. PT IS LYING IN BED. ALERT AND ORIENTED AND ABLE TO VERBALIZE NEEDS. IV IS OUT DUE TO PT ACCIDENTALLY PULLING IT OUT. DAY NURSE TO ATTEMPT IV START. PT IS AMBULATORY BUT WAS INSTRUCTED TO CALL FOR ANY ASSISTANCE NEEDED. PT DENIES ANY PAIN AT THIS TIME. ISOLATION PRECAUTIONS IN PLACE. NO NEEDS ARE VERBALIZED AT THIS TIME. WILL CONTINUE TO MONITOR. SIDE RAILS ARE UP X 2. BED IS IN LOWEST POSITION. CALL LIGHT IS WITHIN REACH.
--- NOTE | 2016-11-26 20:42 | NUR ---
SHIFT ASSESSMENT COMPLETED. NIGHT MEDS GIVEN WITH NO PROBLEMS. PT RECIEVED NO INSULIN PER SLIDING SCALE FOR FYXH=946. PT REQUESTING PRN LIBRIUM. ADMINISTERED PER ORDER. NO FURTHER NEEDS AT THIS TIME. AT THE BEDSIDE. WILL MONITOR. SIDE RAILS X 2. BED LOW. CALL LIGHT IN REACH.
--- NOTE | 2016-11-26 22:59 | NUR ---
IV SITED TO RIGHT FOREARM X 1 ATTEMPT. 22G. GOOD BLOOD RETURN. FLUSHES W/O DIFFICULTY. SALINE LOC PER PT REQUEST.
[2016-11-27 04:00] VITALS: BP 135/82
[2016-11-27 06:13] LABS: HEMATOCRIT 28.6 % (42.0-54.0); HEMOGLOBIN 9.3 g/dL (13.5-17.5); MCH 31.4 pg (26.0-34.0); MCHC 32.5 g/dL (31.0-37.0); MCV 96.6 fL (80.0-100.0); MEAN PLATELET VOLUME 9.7 fL (7.4-10.4); PLATELET COUNT 161 10x3/uL (130-400); RBC 2.96 10x6/uL (4.20-6.10); RDW 17.7 % (11.5-14.5); WBC 6.9 10x3/uL (4.8-10.8)
[2016-11-27 06:38] LABS: ALBUMIN 2.3 g/dL (3.4-5.0); ALKALINE PHOSPHATASE 44 U/L (46-116); BILIRUBIN - TOTAL 0.76 mg/dL (0.2-1.3); CALCIUM 7.5 mg/dL (8.5-10.1); CARBON DIOXIDE 23.8 mmol/L (21.0-32.0); CHLORIDE - SERUM 106 mmol/L (98-107); CREATININE - SERUM 0.7 mg/dL (0.6-1.3); POTASSIUM - SERUM 3.4 mmol/L (3.5-5.1); PROTEIN - SERUM 5.9 g/dL (6.4-8.2); SODIUM 141 mmol/L (136-145); eGFR NON AFRICAN AMERICAN > 90 mL/min (90-120)
[2016-11-27 06:39] LABS: ALT (SGPT) 38 U/L (10-68); CALC OSMOLALITY 279 mosm/kg (275-300); GLUCOSE 93 mg/dL (74-106); UREA NITROGEN 10 mg/dL (7-18)
[2016-11-27 07:42] LABS: ANISOCYTOSIS OCC; LYMPHOCYTES 24 % (15-50); MONOCYTES 9 % (2-11); NEUTROPHILS 63 % (40-80); PLATELET ESTIMATE NORMAL; ROULEAUX OCC
[2016-11-27 08:26] VITALS: BP 113/64
[2016-11-27 11:39] VITALS: BP 128/75
--- NOTE | 2016-11-27 12:04 | NUR ---
NO THIAMINE AVAILABLE, CALLED PHARMACY.
[2016-11-27 13:10] LABS: HEMATOCRIT 29.4 % (42.0-54.0); HEMOGLOBIN 9.6 g/dL (13.5-17.5)
[2016-11-27 15:26] VITALS: BP 124/76
--- NOTE | 2016-11-27 19:15 | NUR ---
RECIEVED SHIFT REPORT. PT IS LYING IN BED. ALERT AND ORIENTED AND ABLE TO VERBALIZE NEEDS. IV IS PATENT AND SALINE LOC PER PT REQUEST. PT IS AMBULATORY BUT WAS INSTRUCTED TO CALL FOR ANY ASSISTANCE NEEDED. TRACH NOTED INTACT. PT DENIES ANY PAIN AT THIS TIME. NO NEEDS ARE VERBALIZED AT THIS TIME. WILL CONTINUE TO MONITOR. SIDE RAILS ARE UP X 2. BED IS IN LOWEST POSITION. CALL LIGHT IS WITHIN REACH.
[2016-11-27 20:00] VITALS: BP 137/72
--- NOTE | 2016-11-27 20:32 | NUR ---
SHIFT ASSESSMENT COMPLETED. NIGHT MEDS GIVEN WITH NO PROBLEMS. PT REFUSED TO HAVE FSBS AT THIS TIME. NO NEEDS ARE VOICED. WILL MONITOR. SIDE RAILS X 2. BED LOW. CALL LIGHT IN REACH.
[2016-11-27 21:19] LABS: HEMATOCRIT 31.6 % (42.0-54.0); HEMOGLOBIN 10.3 g/dL (13.5-17.5)
[2016-11-28] VITALS (10 sets, daily range): BP systolic 109–141; BP diastolic 62–84
[2016-11-28 06:01] LABS: HEMATOCRIT 29.8 % (42.0-54.0); HEMOGLOBIN 9.8 g/dL (13.5-17.5); MCH 31.6 pg (26.0-34.0); MCHC 32.9 g/dL (31.0-37.0); MCV 96.1 fL (80.0-100.0); MEAN PLATELET VOLUME 9.7 fL (7.4-10.4); PLATELET COUNT 188 10x3/uL (130-400); RDW 17.4 % (11.5-14.5); WBC 6.1 10x3/uL (4.8-10.8)
[2016-11-28 06:30] LABS: ALBUMIN 2.5 g/dL (3.4-5.0); ALKALINE PHOSPHATASE 50 U/L (46-116); ALT (SGPT) 193 U/L (10-68); BILIRUBIN - TOTAL 0.86 mg/dL (0.2-1.3); CALC OSMOLALITY 278 mosm/kg (275-300); CALCIUM 7.4 mg/dL (8.5-10.1); CARBON DIOXIDE 26.4 mmol/L (21.0-32.0); CHLORIDE - SERUM 104 mmol/L (98-107); CREATININE - SERUM 0.6 mg/dL (0.6-1.3); GLUCOSE 100 mg/dL (74-106); POTASSIUM - SERUM 3.4 mmol/L (3.5-5.1); PROTEIN - SERUM 6.3 g/dL (6.4-8.2); SODIUM 141 mmol/L (136-145); UREA NITROGEN 8 mg/dL (7-18); eGFR NON AFRICAN AMERICAN > 90 mL/min (90-120)
[2016-11-28 07:41] LABS: EOSINOPHILS 1 % (0-7); LYMPHOCYTES 15 % (15-50); MONOCYTES 21 % (2-11); NEUTROPHILS 63 % (40-80); PLATELET ESTIMATE NORMAL
--- NOTE | 2016-11-28 12:47 | NUR ---
NUTRITION MONITORING & EVAL CHART REVIEWED. PT CURRENTLY NPO FOR COLONOSCOPY. WILL PROVIDE DIET WHEN RESUMED, MONITOR PO INTAKE. RD FOLLOWING
[2016-11-28 14:19] LABS: HEPATITIS C ANTIBODY <0.1 (0.0-0.9)
--- NOTE | 2016-11-28 19:15 | NUR ---
REICEVED SHIFT REPORT. PT IS LYING IN BED. ALERT AND ORIENTED AND ABLE TO VERBALIZE NEEDS. IV IS PATENT ANS SALINE LOC AT THIS TIME. PT IS AMBULATORY BUT WAS INSTRUCTED TO CALL FOR ANY ASSISTANCE NEEDED. PT DENIES ANY PAIN AT THIS TIME. TRACH NOTED WITH COLLAR ON. NO NEEDS ARE VERBALIZED AT THIS TIME. WILL CONTINUE TO MONITOR. IS AT THE BEDSIDE. SIDE RAILS ARE UP X 2. BED IS IN LOWEST POSITION. CALL LIGHT IS WITHIN REACH.
--- NOTE | 2016-11-28 21:15 | NUR ---
SHIFT ASSESSMENT COMPLETED. NIGHT MEDS GIVEN WITH NO PROBLEMS. PT CHECKED HIS OWN SUGAR AND DID NOT WANT TO BE STUCK AGAIN. STATES HIS SUGAR WAS 105. NO NEED FOR INSULIN AT THIS TIME. PT REQUESTING PRN LIBRIUM. ADMINISTERED PER ORDER. DENIES FURTHER NEEDS AT THIS TIME. AT BEDSIDE. WILL MONITOR. SIDE RAILS X 2. BED LOW. CALL LIGHT IN REACH.
[2016-11-29 04:00] VITALS: BP 129/77
[2016-11-29 05:36] LABS: BASOPHILS 0.3 % (0.0-2.0); EOSINOPHILS 2.5 % (0-7); HEMATOCRIT 32.3 % (42.0-54.0); HEMOGLOBIN 10.4 g/dL (13.5-17.5); IMMATURE GRANULOCYTES 0.7 % (0-5); LYMPHOCYTES 7.7 % (15-50); MCH 31.5 pg (26.0-34.0); MCHC 32.2 g/dL (31.0-37.0); MCV 97.9 fL (80.0-100.0); MEAN PLATELET VOLUME 9.9 fL (7.4-10.4); MONOCYTES 28.7 % (2-11); NEUTROPHILS 60.1 % (40-80); PLATELET COUNT 192 10x3/uL (130-400); RDW 17.3 % (11.5-14.5); WBC 7.3 10x3/uL (4.8-10.8)
[2016-11-29 06:05] LABS: ALBUMIN 2.5 g/dL (3.4-5.0); ALKALINE PHOSPHATASE 60 U/L (46-116); ALT (SGPT) 39 U/L (10-68); CALCIUM 7.9 mg/dL (8.5-10.1); CREATININE - SERUM 0.7 mg/dL (0.6-1.3); GLUCOSE 184 mg/dL (74-106); PROTEIN - SERUM 6.5 g/dL (6.4-8.2); UREA NITROGEN 7 mg/dL (7-18); eGFR NON AFRICAN AMERICAN > 90 mL/min (90-120)
[2016-11-29 06:44] LABS: CALC OSMOLALITY 280 mosm/kg (275-300); CHLORIDE - SERUM 104 mmol/L (98-107); SODIUM 139 mmol/L (136-145)
[2016-11-29 08:15] VITALS: BP 137/72
[2016-11-29] MEDS ORDERED: LEVAQUIN500 MG PO (08:26)
[2016-11-29] MEDS ORDERED: FLAGYL500 MG PO (08:26)
--- NOTE | 2016-11-29 10:17 | NUR ---
CM REASSESSMENT NOTE: PATIENT IS DISCHARGING HOME TODAY- DRIVING HIM. PATIENT AND STATED NO HOME HEALTH NEEDED AND HAD NO OTHER NEEDS FOR DISCHARGE. IMM SERVED
--- NOTE | 2016-11-29 18:52 | OP ---
PATIENT NAME: INDY MORGAN MEDICAL RECORD: [id number] :67 LOCATION:[id number] ADMISSION DATE:11/22/16 SURGEON: SEBASTIAN SKELTON MD DATE OF OPERATION: 11/28/2016 PROCEDURE: Colonoscopy and ileoscopy with biopsy. ATTENDING PHYSICIAN: Owen Malagon MD. INDICATIONS: Mr. Morgan is a pleasant 51-year-old gentleman with a history of diabetes mellitus, who presented to clinic secondary to melenic stools, was noted to be anemic. He was admitted for further evaluation. During his hospitalization, he has had 6 units of packed red blood cells. He had an EGD on 11/23/2016 that showed mild proximal esophageal candidiasis, small hiatal hernia, prominent gastric folds in the cardia, fundus and body of the stomach, small erosion along the incisura of the stomach and mild gastritis. After his EGD, he had a recurrent large bloody bowel movement, had a nuc med bleeding scan on 11/22/2016 that was negative for GI hemorrhage. He had a CT of the abdomen and pelvis with contrast on 11/23/2016 that showed diffuse fatty infiltration of the liver, gallstones and a contracted gallbladder, but no ductal dilatation and a small amount of fluid in the right pericolic gutter. Mesenteric arteriogram on 11/23/2016 showed no evidence of hemorrhage, but vasopressin was empirically infused into the SMA. He had no recurrent bleeding. He presents today for inpatient colonoscopy. PREMEDICATIONS: Total IV anesthesia (propofol 180 mg). INSTRUMENT: Olympus video colonoscope. PROCEDURE AND FINDINGS: After receiving informed consent, Mr. Morgan was placed in left lateral decubitus position and sedated as per anesthesia. After achieving an adequate level of sedation, digital rectal exam was performed that showed no external hemorrhoidal tags, fissures or fistulas, normal sphincter tone, no palpable rectal masses. Colonoscope was introduced per rectally and advanced to the cecum without difficulty. The cecum, IC valve and appendiceal orifice were identified. The terminal ileum was intubated and the distal small bowel mucosa was without erythema or ulcers. No blood was seen in the terminal ileum. As the colonoscope was withdrawn, careful inspection was made of the sanches of the colon. Overall, mucosa had normal vascular and fold pattern. No masses or ulcers were noted in the colon, there were few diverticula seen scattered in the sigmoid colon. There was a diminutive rectal polyp that was cold biopsied. Retroflexion in rectum showed mild internal hemorrhoids. Mr. Morgan tolerated the procedure well, no immediate complications. ASSESSMENT: 1. Suspect diverticular bleed, resolved. 2. Small rectal polyp. 3. Mild internal hemorrhoids. 4. Normal-appearing terminal ileum. RECOMMENDATIONS: 1. Followup histopathology. 2. Advance diet. TRANSINT:[id number] Voice Confirmation ID: [id number] DOCUMENT ID: [id number] OPERATIVE REPORT [id number] INDY MORGAN CC: Dr. Chandana Tejdaa SEBASTIAN SKELTON MD at 1852 CC: DR. CHANDANA TEJADA and JONATHON MALAGON MD [id number] DICTATION DATE: 11/28/16 1459 STEREO EQUIPMENT INSTALLER: 11/29/16 0241 DIS IN 11/29/16 [facility] [address] [place] [address]
== END 2016-11-29 12:33 | disposition home or self-care (01) | DRG 378 ==
LOC: D.ICU 12:33 → D.MS 12:33 → D.ICU 11-23 16:55 → D.MS 11-26 15:49
PROVIDERS: Internal Medicine Gastroenterology; Radiology Diagnostic Radiology; ADMIT Family Medicine
PROC: 0DB68ZX Excision of Stomach, Via Natural or Artificial Opening Endoscopic, Diagnostic (ICD-10-PCS; 2016-11-23)
PROC: B4141ZZ Fluoroscopy of Superior Mesenteric Artery using Low Osmolar Contrast (ICD-10-PCS; principal; 2016-11-23 09:30)
PROC: 06PYX3Z Removal of Infusion Device from Lower Vein, External Approach (ICD-10-PCS; 2016-11-25)
PROC: 0DBP8ZZ Excision of Rectum, Via Natural or Artificial Opening Endoscopic (ICD-10-PCS; 2016-11-28)
DX: K57.91 Diverticulosis of intestine, part unspecified, without perforation or abscess with bleeding (principal); D62 Acute posthemorrhagic anemia; B37.81 Candidal esophagitis; F10.231 Alcohol dependence with withdrawal delirium; K44.9 Diaphragmatic hernia without obstruction or gangrene; K29.00 Acute gastritis without bleeding; I10 Essential (primary) hypertension; E11.9 Type 2 diabetes mellitus without complications; K62.1 Rectal polyp; K64.8 Other hemorrhoids; Z93.0 Tracheostomy status